=== PATIENT | female | born 1955 | race Caucasian/White ===

== ENCOUNTER 2021-09-21 18:22 | Emergency (ER) | payer BC, SELFPAY ==
[2021-09-21 18:28] VITALS: BP 159/71; PULSE 58; RESP 18; TEMP 36.4; O2SAT 97
[2021-09-21 18:39] VITALS: BP 159/71; PULSE 58; RESP 18; TEMP 36.4; O2SAT 97
--- NOTE | 2021-09-21 18:49 | ED.DENTAL ---
HPI - Dental/Oral General Chief complaint: Dental/Oral Stated complaint: tooth pain Time Seen by Provider: 09/21/21 18:49 Mode of arrival: ambulatory Limitations: no limitations History of Present Illness HPI Narrative: 65-year-old female presents with concern for left lower dental pain. She reports pain started over the weekend, caused her having trouble sleeping last night. She has a dentist appointment in the morning but was worried about getting through the night. She denies difficulty swallowing, fever. MD Complaint: tooth pain Related Data Home Medications Medication Instructions Recorded Confirmed atorvastatin 09/21/21 citalopram mg 09/21/21 clopidogrel 09/21/21 dapagliflozin [Farxiga] mg 09/21/21 ezetimibe mg 09/21/21 insulin degludec [Tresiba SUBCUT 09/21/21 FlexTouch U-100] losartan 09/21/21 metformin mg 09/21/21 metoprolol tartrate 09/21/21 Allergies Allergy/AdvReac Type Severity Reaction Status Date / Time cephalexin [From Keflex] Allergy Rash Verified 09/21/21 18:38 ciprofloxacin [From Cipro] Allergy Rash Verified 09/21/21 18:38 tramadol Allergy Rash Verified 09/21/21 18:38 Review of Systems Review of Systems: CONSTITUTIONAL: Denies malaise, chills, sweats, or fever. EYES: Denies visual changes ENT: Denies rhinorrhea, congestion, sinus pain, otalgia or sore throat. Reports left lower dental pain CARDIOVASCULAR: Denies chest pain, palpitations RESPIRATORY: Denies cough or dyspnea. SKIN: Denies rash or itching. MUSCULOSKELETAL: Denies myalgia. NEUROLOGIC: Denies numbness, weakness, or headache. All systems reviewed & are unremarkable except as noted in HPI and below PMFSH Comments At time of signature, agree with nursing past medical, surgical, social and family history. There is no relevant family history pertinent to the presenting complaint Exam Narrative: GENERAL: Well-appearing, well-nourished, and in no acute distress. HEAD: Normocephalic, atraumatic. EYES: PERRLA, sclera clear ENT: Nares clear, turbinates pink, no rhinorrhea or epistaxis. Mucous membranes moist. TM pearly hines with sharp light reflex bilaterally; no tragal tenderness. Oropharynx without erythema or lesions. Tonsils not enlarged and without exudate. Missing teeth, broken teeth: Tooth #19 broken with Marianne without surrounding erythema or edema, no periapical abscess NECK: Supple. No lymphadenopathy. CHEST: No respiratory distress. Speaks in full sentences. HEART: Regular rate and rhythm. SKIN: Warm, dry, no visible rash. NEURO: Alert and oriented x3. PSYCH: Normal mood and affect Course Course Emergency Course: Patient is aware of diagnosis, understands and agrees to treatment plan. Anticipatory guidance given. Patient agrees to follow-up as directed and is aware of reasons to seek care at the emergency department. Portions of this record may have been created with voice recognition software Level of Care: Express Care Visit Vital Signs Vital signs: Vital Signs Temperature 97.6 F 09/21/21 18:28 Pulse Rate 58 L 09/21/21 18:28 Respiratory Rate 18 09/21/21 18:28 Blood Pressure 159/71 H 09/21/21 18:28 Pulse Oximetry 97 09/21/21 18:28 Temperature 97.6 F 09/21/21 18:39 Pulse Rate 58 L 09/21/21 18:39 Respiratory Rate 18 09/21/21 18:39 Blood Pressure 159/71 H 09/21/21 18:39 Pulse Oximetry 97 09/21/21 18:39 Reviewed. MDM - Dental/Oral MDM Narrative Medical decision making narrative: Patients pain and complaint coupled with physical findings are consistant with dentalgia. There are no focal signs of space occupying lesions that are compromising to the airway; no dysphagia, odynophagia, dysphonia, or dyspnea. No uvular deviation or soft palate edema. Patient is non-toxic appearing. The floor of the mouth is soft with no signs of Nathan's Angina; no induration below mandible, no neck pain. Patient is without trismus or drooling and able to swallow secretions. Patient
== END 2021-09-21 19:10 | disposition home or self-care (01) ==
PROVIDERS: Emergency Provider Nurse Practitioner; PCP Internal Medicine
DX: K08.89 Other specified disorders of teeth and supporting structures (principal); E11.9 Type 2 diabetes mellitus without complications; Z95.1 Presence of aortocoronary bypass graft
CPT/HCPCS: 99213; G0463